=== PATIENT | female | born 1955 | race Caucasian/White ===

== ENCOUNTER 2016-11-01 17:10 | Emergency (ER) | payer BC ==
[2016-11-01 17:17] VITALS: BP 155/74; PULSE 82; RESP 16; TEMP 98.2; O2SAT 97
[2016-11-01 17:23] LABS: LEUKOCYTE ESTERASE,URINE 1+ (NEGATIVE); NITRITE,URINE NEGATIVE (NEGATIVE); PH,URINE 5.5 (5.0-7.5)
[2016-11-01 17:24] LABS: COLOR PALE YELLOW
[2016-11-01 17:30] LABS: BACTERIA 2+ /hpf (NONE SEEN); MUCUS 1+ /lpf (NONE-1+); YEAST OCCASIONAL /hpf (NONE SEEN)
--- NOTE | 2016-11-01 17:34 | UCPHY ---
H & P Patient Type: Established Chief Complaint Nursing Narrative: Burning with urination and urinary frequency x 2 days. Denies flank pain and fever. Time Seen by Provider: 11/01/16 17:17 HPI/ROS: Chief Complaint: Urinary urgency frequency HPI: 61-year-old female presenting with 2 days of urinary urgency, frequency and dysuria. Patient states she has a history of urinary tract infections in the past. No fevers or chills. No abdominal pain. No back pain. She has a history of type 1 diabetes on insulin pump. Last hemoglobin A1c was 6.2. ROS: 10 point Review of Systems is negative except as noted in the HPI. PMH: Type 1 diabetes on insulin pump Social History: No smoking, no alcohol, no recreational drug use Family History: non-contributory Physical Exam: Gen: Awake, Alert, No Distress HEENT: Nose: no rhinorrhea Eyes: PERRLA, EOMI Mouth: Moist mucosa Neck: Supple, no JVD Chest: No distress, Heart: Normal perfusion, Abd: Soft, non-tender, no guarding Back: no CVA tenderness, no midline tenderness Ext: no edema, non-tender Skin: no rash Neuro: CN II-XII intact, Sensation grossly intact, Strength 5/5 in bilateral upper and lower extremities - Personal History Current Tetanus/Diphtheria Vaccine: Unsure Current Tetanus Diphtheria and Acellular Pertussis (TDAP): Unsure - Medical/Surgical History Hx Asthma: No Hx Chronic Respiratory Disease: No Hx Diabetes: Yes Hx Cardiac Disease: No Hx Renal Disease: No Hx Cirrhosis: No Hx Alcoholism: No Hx HIV/AIDS: No Hx Splenectomy or Spleen Trauma: No Other PMH: DM type I, peripheral neuropathy, hernia, csection, ortho surgeries - Family History Significant Family History: No pertinent family hx - Social History Smoking Status: Former smoker Constitutional: Initial Vital Signs Temperature (C) 36.8 C 11/01/16 17:11 Heart Rate 82 11/01/16 17:11 Respiratory Rate 16 11/01/16 17:11 Blood Pressure 155/74 H 11/01/16 17:11 O2 Sat (%) 97 11/01/16 17:11 O2 Delivery Mode Room Air Allergies/Adverse Reactions: No Known Allergies Allergy (Verified 11/01/16 17:17) Home Medications: Medication Instructions Recorded Cymbalta 11/01/16 Nitrofurantoin Monohyd/M-Cryst 100 mg PO BID #10 capsule 11/01/16 [Macrobid 100 mg Capsule] Tramadol HCl 11/01/16 novoLOG 11/01/16 Medical Decision Making - Data Points Laboratory Results: 11/01/16 17:15 Urine Color PALE YELLOW Urine Appearance HAZY Urine pH 5.5 (5.0-7.5) Ur Specific [place] 1.010 (1.002-1.030) Urine Protein NEGATIVE (NEGATIVE) Urine Ketones NEGATIVE (NEGATIVE) Urine Blood 1+ H (NEGATIVE) Urine Nitrate NEGATIVE (NEGATIVE) Urine Bilirubin NEGATIVE (NEGATIVE) Urine Urobilinogen 0.2 EU EU (0.2-1.0) Ur Leukocyte Esterase 1+ H (NEGATIVE) Urine RBC 10-15 /hpf H /hpf (0-3) Urine WBC 10-15 /hpf H /hpf (0-3) Ur Epithelial Cells 1+ /lpf /lpf (NONE-1+) Urine Bacteria 2+ /hpf H /hpf (NONE SEEN) Urine Mucus 1+ /lpf /lpf (NONE-1+) Urine Yeast OCCASIONAL /hpf H /hpf (NONE SEEN) Ur Culture Indicated? INDICATED H (NI) Urine Glucose 3+ H (NEGATIVE) Departure - Departure Disposition: Home, Routine, Self-Care Clinical Impression: UTI (urinary tract infection) Condition: Good Instructions: Urinary Tract Infection in Women (ED) Additional Instructions: Follow up with primary care physician in 3-4 days if symptoms are not improving. Referrals: Maricruz Ware MD [Primary Care Provider] - As per Instructions Prescriptions: Nitrofurantoin Monohyd/M-Cryst [Macrobid 100 mg Capsule] 100 mg PO BID #10 capsule - PQRS PQRS Measurement: NA
== END 2016-11-01 17:40 | disposition home or self-care (01) ==
LOC: CED 17:10
DX: N39.0 Urinary tract infection, site not specified (principal); E10.9 Type 1 diabetes mellitus without complications; Z87.891 Personal history of nicotine dependence
CPT/HCPCS: 81003-PO; 81015-PO; 99214-PO; G0463-PO

== ENCOUNTER → 2018-07-16 | Outpatient (CLI) | payer OTHER | LOC: FIMAGING 14:55 | PROVIDERS: ATTEND Midwife | DX: N64.4 Mastodynia (principal) ==

== ENCOUNTER → 2018-09-02 | Outpatient (CLI) | payer OTHER | LOC: BMCIMAGING 09:54 | PROVIDERS: ATTEND Physician Assistant | DX: M22.2X1 Patellofemoral disorders, right knee (principal); M22.2X2 Patellofemoral disorders, left knee; M25.461 Effusion, right knee ==